=== PATIENT | female | born 1970 | race Two or more races ===

== ENCOUNTER 2020-07-18 09:05 | Emergency (ER) | payer OTHER ==
[~2020-07-18] VITALS: Ht 160 cm; Wt 95.2 kg
[2020-07-18] MEDS ORDERED: LORA2 PO (09:30)
[2020-07-18] MEDS ORDERED: AMLODIPINE BESYL5 MG PO (09:31)
[2020-07-18] MEDS ORDERED: Ventolin/Prove6.7 GM INH (09:31)
[2020-07-18] MEDS ORDERED: METOPROLOL TART25 MG PO (09:31)
[2020-07-18] MEDS ORDERED: MONT10T PO (09:31)
[2020-07-18] MEDS ORDERED: ASMANEX HFA13 G1 INH (09:31)
[2020-07-18] MEDS ORDERED: ONDA4ODT MM (11:45)
== END 2020-07-18 11:55 | disposition home or self-care (01) ==
LOC: ER 09:05
DX: M54.81 Occipital neuralgia (principal); I10 Essential (primary) hypertension; J45.909 Unspecified asthma, uncomplicated; Z79.899 Other long term (current) drug therapy
CPT/HCPCS: 64400; 70450; 96374-59; 96375-59; 99284-25; A9270; J1200; J1885; J2765